=== PATIENT | female | born 1980 | race Caucasian/White ===

== ENCOUNTER 2016-12-29 18:26 | Emergency (ER) | payer OTHER ==
--- NOTE | 2016-12-29 22:41 | ED CLINICAL REPORT ---
Clinical Report - Physicians/Mid Levels [facility] [address] [place] [address] 12/29/2016 18:27 [id number] Time Seen: 18:53 Dec 29 2016. Arrived- By private vehicle. Historian- patient. HISTORY OF PRESENT ILLNESS Chief Complaint: PELVIC PAIN. 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 The symptoms are described as mild. The patient has had pain with urination. The patient has had urinary frequency. No urgency of urination or hematuria. Last normal menstrual period was 5 weeks ago. Not sexually active. Does not use control measures. (patient reports being seen 6 days previously, start on Macrobid for cystitis, symptoms have not resolved, continues to have pain on the left side. With no fevers. Patient reports pelvic pain.). REVIEW OF SYSTEMS No nausea, diarrhea, headache, fever or skin rash. No enlarged lymph nodes. All systems otherwise negative, except as recorded above. PAST HISTORY ( currently breast feeding). SOCIAL HISTORY No drug use. ADDITIONAL NOTES The nursing notes have been reviewed. PHYSICAL EXAM Vital Signs: 12/29/2016 18:50 BP: 142/79. HR: 107. RR: 20. O2 saturation: 100%. Temp: 98.3 F. HEENT: Normal external inspection. ENT: Pharynx normal. Neck: Neck supple. CVS: Heart sounds normal. Respiratory: No respiratory distress. Breath sounds normal. Abdomen: Soft and nontender. Tenderness in the suprapubic area and lower abdomen. Bowel sounds normal. The bowel sounds are not abnormal. : Speculum and bimanual exam performed. External inspection normal. Speculum exam normal. No vaginal discharge. No herpes-like lesions. Bimanual exam normal. Mild right adnexal tenderness. No cervical motion tenderness. (Chaperoned exam of Yuli (Tech)). Skin: Skin warm. Normal skin color. LABS, X-RAYS, AND EKG Laboratory Tests: UA-Culture if indicated: (CARROLL: 12/29/2016 19:00) ( MsgRcvd 12/29/2016 19:19) Final results Test Result Flag Units (Reference) URINE COLOR YELLOW URINE APPEARANCE CLEAR URINE GLUCOSE NEGATIVE (NEGATIVE) URINE BILIRUBIN NEGATIVE (NEGATIVE) URINE KETONE NEGATIVE (NEGATIVE) URINE SPECIFIC GRAVITY 1.015 (1.010-1.030) URINE PH 5.5 (5.0-8.0) URINE PROTEIN NEGATIVE (NEGATIVE) URINE UROBILINOGEN 0.2 EU/dL (0.2-1.0) URINE NITRITE NEGATIVE (NEGATIVE) URINE BLOOD NEGATIVE (NEGATIVE) URINE LEUK ESTERASE NEGATIVE (NEGATIVE) URINE RBC 0-1 rbc/hpf (0-1) URINE WBC RARE wbc/hpf (0-1) URINE EPITHELIAL CELLS RARE EPI/hpf (0-5) URINE BACTERIA NONE SEEN (NONE SEEN) URINE COMMENT CULT NOT INDICATED URINE CULTURES ARE SET-UP BASED ON THE FOLLOWING CRITERIA:POSITIVE NITRITEPOSITIVE LEUKOCYTE ESTERASEGREATER THAN 10 WHITE BLOOD CELLSMODERATE (2+) OR GREATER BACTERIA Urine: (CARROLL: 12/29/2016 19:00) ( [facility] 12/29/2016 19:12) Final results Test Result Flag Units (Reference) URINE NEGATIVE CBC w Diff: (CARROLL: 12/29/2016 19:38) ( [facility] 19:47) Final results Test Result Flag Units (Reference) WHITE BLOOD COUNT 8.8 K/uL (4.5-11.5) RED BLOOD COUNT 4.60 M/uL (4.00-5.20) HEMOGLOBIN 14.0 gm/dL (12.0-16.0) HEMATOCRIT 40.9 % (36.0-46.0) MEAN CELL VOLUME 89 fL (80-100) MEAN CORPUSCULAR HGB 30 pg (26-34) MEAN CORPUSCULAR HGB CONC 34 g/dL (31-37) RED CELL DISTRIBUTION WIDTH 12.9 % (11.6-14.8) PLATELET COUNT 227 K/uL (150-400) NEUTROPHIL % 79.6 H % (50-75) LYMPH % 13.3 L % (25-40) MONO % 3.9 % (3-14) EOSINOPHIL % 2.6 % (0-4) BASOPHIL % 0.6 % (0-2) CMP: (CARROLL: 12/29/2016 19:38) ( MegRcvd 12/29/2016 20:10) Final results Test Result Flag Units (Reference) GLUCOSE 126 H mg/dL (70-110) BUN 11 mg/dL (7-18) CREATININE 0.7 mg/dL (0.6-1.3) Estimated GFR >60 mL/min Estimated GFR- >60 mL/min Note: Persistent reduction over 3 months in eGFR<60 mL/min/1.73 m2 defines CKD. Patients with eGFR values>=60 mL/min/1.73 m2 may also have CKD if evidence ofpersistent proteinuria. Additional information may be foundat www.kidney.org. SODIUM 137 mmol/L (136-145) POTASSIUM 4.1 mmol/L (3.5-5.1) CHLORIDE 102 mmol/L (98-107) CARBON DIOXIDE 25 mmol/L (21-32) CALCIUM 8.5 mg/dL (8.5-10.1) TOTAL PROTEIN 7.0 g/dL (6.4-8.2) ALBUMIN 3.8 g/dL (3.3-5.0) BILIRUBIN, TOTAL 0.3 mg/dL (0.0-1.0) ALKALINE PHOSPHATASE 77 U/L (46-116) AST (SGOT) 19 U/L (15-37) ALT (SGPT) 32 U/L (12-78) Wet Prep: (CARROLL: 12/29/2016 19:50) ( [facility] 12/29/2016 20:05) Final results SPECIMEN DESCRIPTION: C Test Result Flag Units (Reference) WET MOUNT CLUE CELLS:: NONE EPITHELIAL CELLS: MODERATE -- SOURCE?: CERVIX WHITE BLOOD CELLS: FEW TRICHOMONAS:: NONE -- YEAST:: NONE . Note - Tests: (IMPRESSION: 1. 5.8 cm simple right ovarian cyst Electronically Final signed by:Cyril Dow MD 12/30/2016 12:06:16 AM). PROGRESS AND PROCEDURES Course of Care: patient here in the area stable, with a large ovarian cyst, with otherwise no signs of torsion No signs of hemorrhagic cyst. Patient to follow up outpatient for this. No McBurney's point tenderness. No other systemic symptoms. Negative . No signs of tubo-ovarian mass. No signs of ectopic. Patient is stable. Symptoms better. Patient/family counseled. Differential Diagnosis: I considered gastritis, gastroenteritis, acute appendicitis, mesenteric lymphadenitis, diverticulitis, biliary colic, hepatitis, splenic injury, intraabdominal abscess, urinary tract infection, cystitis, ovarian cyst, abdominal aortic aneurysm and myocardial infarction as a possible cause of abdominal pain in this patient. This is a partial list of diagnoses considered. Disposition: Discharged. CLINICAL IMPRESSION Single simple right ovarian cyst (Large almost 6 cm). No ruptured ovarian cyst, torsion of ovary or polycystic ovarian disease. INSTRUCTIONS Drink plenty of fluids. Warnings: Further evaluation is necessary. Prescription Medications: Ultram 50 mg: take 1 orally every 6 hours for 3 days, as needed for pain. Dispense fifteen (15). No refills. Substitution is permissible. Follow-up with: Nathaniel Hawley MD, Obstetrics/Gynecology, , [facility], [address] [place] [address], [facility] Follow up. Call for the next available appointment. (Electronically signed by Cat Salas P.A.-C 12/30/2016 0:11)
--- NOTE | 2016-12-29 22:41 | ED NURSING NOTES ---
Clinical Report - Nurses [facility] [address] [place] [address] 12/29/2016 18:27 Patient: KATHE BOCANEGRA TRIAGE Triage time 18:50. Acuity: LEVEL 3. Chief Complaint: PELVIC PAIN and FREQUENCY. Alert. No acute distress. --18:54 Anthony Lechuga R.N. 18:50 12/29/16. BP: 142/79. HR: 107. RR: 20. O2 saturation: 100%. Temp: 98.3 F. Pain level now 5/10. --18:54 Anthony Lechuga R.N. Weight: 72.5 kg estimated. Height/Length: 65 inches Estimated. BMI: 26.6. --23:32 Dominguez Acosta R.N. Medications Macrodantin Oral. --18:53 Anthony Lechuga R.N. PriLOSEC Oral. --19:08 Anthony Lechuga R.N. Allergies Codeine. Morphine and Related. Vicodin. --18:52 Anthony Lechuga R.N. History Arrived by private vehicle. Historian: patient. Accompanied by family. Onset. (1 weeks ago). 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 --18:54 Anthony Lechuga R.N. PROBLEMS: Gastroenteritis. Cough. Anemia. URI. Bronchitis. Spontaneous (Miscarriage). Irritable Bowel Syndrome. Vaginal Bleeding. Problems. Threatened . Vaginitis. UTI - Urinary Tract Infection. Immunizations. OB History. . Depression. Anxiety Reaction. --19:08 Anthony Lechuga R.N. Interventions ID band on patient. --18:54 Anthony Lechuga R.N. PHYSICAL ASSESSMENT GENERAL / NEURO / PSYCH: Alert. Oriented X 4. Appears in no acute distress. RESPIRATORY: Respirations not labored. GI / : Abdomen soft. SKIN: Skin is warm and dry. --18:54 Anthony Lechuga R.N. NURSING PROGRESS NOTES Call light placed in reach. Bed placed in lowest position. --18:55 Anthony Lechuga R.N. Care transferred and report received (LOU Cruz). --19:11 Dominguez Acosta R.N. 19:36. Checked patient name and birthdate: patient confirmed. Blood samples drawn from the right antecubital space by tech per protocol ; labeled in presence of the patient and sent to lab: rainbow set. --19:59 McQuoid, Yuli, ER Tech1 19:50. PELVIC EXAM: Pelvic exam performed by PA. Assisted by one tech. Preparation: pelvic tray. Procedure. Specimens collected and sent to lab: GC, chlamydia and wet prep. --20:00 McQuoid, Yuli, ER Tech1 Reassurance given. The patient reports no complaints and she is calm and resting quietly. Overall patient status is the same- she states feels the same. Call light placed in reach. Side rails up x 2. Bed placed in lowest position. Brakes of bed on. --21:02 Dominguez Acosta R.N. 21:01 12/29/16. BP: 134/80. HR: 96. RR: 16. O2 saturation: 100%. Temp: 98.2 F (oral). Pain level now: 02/25. --21:02 Dominguez Acosta R.N. <<STRICKEN ENTRY-- 22:30 X-ray complete. --22:35 McQuoid, Yuli, ER Tech1 --END STRIKE>> Charted On Wrong Patient --22:38 McQuoid, Yuli, ER Tech1 22:30 Ultrasound in progress. --22:39 McQuoid, Yuli, ER Tech1 22:40 Ultrasound complete. --22:41 McQuoid, Yuli, ER Tech1 22:51 12/29/2016 Tramadol (TraMADol HCl) PO Tablets 50 mg given. Allergies verified, confirmed 5 rights and sedative warning given to the patient. --22:51 Edenilson Ascencio R.N. DISPOSITION / DISCHARGE 23:00 12/29/16. Condition at departure: stable. No learning barriers present. Discharge instructions provided and reviewed with the patient and spouse. Reviewed medication(s) side effects, precautions, dosing and course information. Prescription(s) given to the patient. Reviewed need for increased fluid intake. Patient and spouse verbalized understanding. Written instructions provided in [place]. ( Patient given referral for Dr. Hawley. Patient states she will not see him but go to her PCP instead.). The patient was discharged by the physician. She was discharged home and accompanied by spouse. She left the Emergency Department ambulatory and via private vehicle. Spouse driving. --23:31 Lory Carmen 23:00 12/29/16. BP: 127/98. HR: 110. RR: 20. O2 saturation: 98% on room air. Temp: 98 F (oral). Pain level now: 04/27. --23:31 Lory Carmen. Locked/Released at 12/30/2016 9:02 by Anthony Lechuga R.N.
--- NOTE | 2016-12-29 22:41 | ED ORDER SUMMARY ---
..... Patient: KATHE BOCANEGRA OrderSheet [facility] VisitID: [id number] [address] [place] [address] 36y, F Registration Date/Time: 12/29/2016 ORDER SHEET Weight: 72.5 kg (estimated) Allergies: Codeine, Morphine and Related, Vicodin GENERAL ORDERS: UA-Culture if indicated Urgent (19:00 12/29/2016 EKoroleva P.A.-C) (Ack 19:07 RKaruga) (19:31 ALawrence ER Tech1) Urine Urgent (19:00 12/29/2016 EKoroleva P.A.-C) (Ack 19:07 RKaruga) (19:31 ALawrence ER Tech1) Wet Prep (Cervix) (c) Urgent (19:31 12/29/2016 EKoroleva P.A.-C) (Ack 19:32 ALawrence ER Tech1) (20:00 AMcQuoid ER Tech1) GC/Chlamydia (Cervix) (c) Urgent (19:31 12/29/2016 EKoroleva P.A.-C) (Ack 19:32 ALawrence ER Tech1) (20:00 AMcQuoid ER Tech1) CBC w Diff Urgent (19:31 12/29/2016 EKoroleva P.A.-C) (Ack 19:32 ALawrence ER Tech1) (20:00 AMcQuoid ER Tech1) CMP Urgent (19:31 12/29/2016 EKoroleva P.A.-C) (Ack 19:32 ALawrence ER Tech1) (20:00 AMcQuoid ER Tech1) Pelvic Exam Setup (19:40 12/29/2016 EKoroleva P.A.-C) (20:00 AMcQuoid ER Tech1) US Pelvic Complete w Transvag Urgent (20:08 12/29/2016 EKoroleva P.A.-C) (Ack 20:19 ALawrence ER Tech1) (22:40 AMcQuoid ER Tech1) MEDICATION ORDERS: Tramadol PO 50 mg (NOW) (22:40 12/29/2016 EKoroleva P.A.-C) (22:51 JDeElena R.N.) IV FLUIDS: ORDER SHEET NOTES: [Electronically signed by Cat Salas P.A.-C (00:11 12/30/2016)] [Electronically signed by Anthony Lechuga R.N. (09:02 12/30/2016)] [Electronically locked/signed by Anthony Lechuga R.N. (09:02 12/30/2016)]
--- NOTE | 2016-12-29 22:41 | ED ORDER SUMMARY ---
..... Patient: KATHE BOCANEGRA OrderSheet [facility] VisitID: [id number] [address] [place] [address] 36y, F Registration Date/Time: 12/29/2016 ORDER SHEET Weight: 72.5 kg (estimated) Allergies: Codeine, Morphine and Related, Vicodin GENERAL ORDERS: UA-Culture if indicated Urgent (19:00 12/29/2016 EKoroleva P.A.-C) (Ack 19:07 RKaruga) (19:31 ALawrence ER Tech1) Urine Urgent (19:00 12/29/2016 EKoroleva P.A.-C) (Ack 19:07 RKaruga) (19:31 ALawrence ER Tech1) Wet Prep (Cervix) (c) Urgent (19:31 12/29/2016 EKoroleva P.A.-C) (Ack 19:32 ALawrence ER Tech1) (20:00 AMcQuoid ER Tech1) GC/Chlamydia (Cervix) (c) Urgent (19:31 12/29/2016 EKoroleva P.A.-C) (Ack 19:32 ALawrence ER Tech1) (20:00 AMcQuoid ER Tech1) CBC w Diff Urgent (19:31 12/29/2016 EKoroleva P.A.-C) (Ack 19:32 ALawrence ER Tech1) (20:00 AMcQuoid ER Tech1) CMP Urgent (19:31 12/29/2016 EKoroleva P.A.-C) (Ack 19:32 ALawrence ER Tech1) (20:00 AMcQuoid ER Tech1) Pelvic Exam Setup (19:40 12/29/2016 EKoroleva P.A.-C) (20:00 AMcQuoid ER Tech1) US Pelvic Complete w Transvag Urgent (20:08 12/29/2016 EKoroleva P.A.-C) (Ack 20:19 ALawrence ER Tech1) (22:40 AMcQuoid ER Tech1) MEDICATION ORDERS: Tramadol PO 50 mg (NOW) (22:40 12/29/2016 EKoroleva P.A.-C) (22:51 JDeElena R.N.) IV FLUIDS: ORDER SHEET NOTES: [Electronically signed by Cat Salas P.A.-C (00:11 12/30/2016)] [Electronically signed by Anthony Lechuga R.N. (09:02 12/30/2016)] [Electronically locked/signed by Anthony Lechuga R.N. (09:02 12/30/2016)]
--- NOTE | 2016-12-29 22:41 | ED CLINICAL REPORT ---
Clinical Report - Physicians/Mid Levels [facility] [address] [place] [address] 12/29/2016 18:27 [id number] Time Seen: 18:53 Dec 29 2016. Arrived- By private vehicle. Historian- patient. 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 The symptoms are described as mild. The patient has had pain with urination. The patient has had urinary frequency. No urgency of urination or hematuria. Last normal menstrual period was 5 weeks ago. Not sexually active. Does not use control measures. (patient reports being seen 6 days previously, start on Macrobid for cystitis, symptoms have not resolved, continues to have pain on the left side. With no fevers. Patient reports pelvic pain.). REVIEW OF SYSTEMS No nausea, diarrhea, headache, fever or skin rash. No enlarged lymph nodes. All systems otherwise negative, except as recorded above. PAST HISTORY ( currently breast feeding). SOCIAL HISTORY No drug use. ADDITIONAL NOTES The nursing notes have been reviewed. PHYSICAL EXAM Vital Signs: 12/29/2016 18:50 BP: 142/79. HR: 107. RR: 20. O2 saturation: 100%. Temp: 98.3 F. HEENT: Normal external inspection. ENT: Pharynx normal. Neck: Neck supple. CVS: Heart sounds normal. Respiratory: No respiratory distress. Breath sounds normal. Abdomen: Soft and nontender. Tenderness in the suprapubic area and lower abdomen. Bowel sounds normal. The bowel sounds are not abnormal. : Speculum and bimanual exam performed. External inspection normal. Speculum exam normal. No vaginal discharge. No herpes-like lesions. Bimanual exam normal. Mild right adnexal tenderness. No cervical motion tenderness. (Chaperoned exam of Yuli (Tech)). Skin: Skin warm. Normal skin color. LABS, X-RAYS, AND EKG Laboratory Tests: UA-Culture if indicated: (CARROLL: 12/29/2016 19:00) ( MsgRcvd 12/29/2016 19:19) Final results Test Result Flag Units (Reference) URINE COLOR YELLOW URINE APPEARANCE CLEAR URINE GLUCOSE NEGATIVE (NEGATIVE) URINE BILIRUBIN NEGATIVE (NEGATIVE) URINE KETONE NEGATIVE (NEGATIVE) URINE SPECIFIC GRAVITY 1.015 (1.010-1.030) URINE PH 5.5 (5.0-8.0) URINE PROTEIN NEGATIVE (NEGATIVE) URINE UROBILINOGEN 0.2 EU/dL (0.2-1.0) URINE NITRITE NEGATIVE (NEGATIVE) URINE BLOOD NEGATIVE (NEGATIVE) URINE LEUK ESTERASE NEGATIVE (NEGATIVE) URINE RBC 0-1 rbc/hpf (0-1) URINE WBC RARE wbc/hpf (0-1) URINE EPITHELIAL CELLS RARE EPI/hpf (0-5) URINE BACTERIA NONE SEEN (NONE SEEN) URINE COMMENT CULT NOT INDICATED URINE CULTURES ARE SET-UP BASED ON THE FOLLOWING CRITERIA:POSITIVE NITRITEPOSITIVE LEUKOCYTE ESTERASEGREATER THAN 10 WHITE BLOOD CELLSMODERATE (2+) OR GREATER BACTERIA Urine: (CARROLL: 12/29/2016 19:00) ( [facility] 12/29/2016 19:12) Final results Test Result Flag Units (Reference) URINE NEGATIVE CBC w Diff: (CARROLL: 12/29/2016 19:38) ( [facility] 12/[place]/2016 19:47) Final results Test Result Flag Units (Reference) WHITE BLOOD COUNT 8.8 K/uL (4.5-11.5) RED BLOOD COUNT 4.60 M/uL (4.00-5.20) HEMOGLOBIN 14.0 gm/dL (12.0-16.0) HEMATOCRIT 40.9 % (36.0-46.0) MEAN CELL VOLUME 89 fL (80-100) MEAN CORPUSCULAR HGB 30 pg (26-34) MEAN CORPUSCULAR HGB CONC 34 g/dL (31-37) RED CELL DISTRIBUTION WIDTH 12.9 % (11.6-14.8) PLATELET COUNT 227 K/uL (150-400) NEUTROPHIL % 79.6 H % (50-75) LYMPH % 13.3 L % (25-40) MONO % 3.9 % (3-14) EOSINOPHIL % 2.6 % (0-4) BASOPHIL % 0.6 % (0-2) CMP: (CARROLL: 12/29/2016 19:38) ( VagRcvd 12/29/2016 20:10) Final results Test Result Flag Units (Reference) GLUCOSE 126 H mg/dL (70-110) BUN 11 mg/dL (7-18) CREATININE 0.7 mg/dL (0.6-1.3) Estimated GFR >60 mL/min Estimated GFR- >60 mL/min Note: Persistent reduction over 3 months in eGFR<60 mL/min/1.73 m2 defines CKD. Patients with eGFR values>=60 mL/min/1.73 m2 may also have CKD if evidence ofpersistent proteinuria. Additional information may be foundat www.kidney.org. SODIUM 137 mmol/L (136-145) POTASSIUM 4.1 mmol/L (3.5-5.1) CHLORIDE 102 mmol/L (98-107) CARBON DIOXIDE 25 mmol/L (21-32) CALCIUM 8.5 mg/dL (8.5-10.1) TOTAL PROTEIN 7.0 g/dL (6.4-8.2) ALBUMIN 3.8 g/dL (3.3-5.0) BILIRUBIN, TOTAL 0.3 mg/dL (0.0-1.0) ALKALINE PHOSPHATASE 77 U/L (46-116) AST (SGOT) 19 U/L (15-37) ALT (SGPT) 32 U/L (12-78) Wet Prep: (CARROLL: 12/29/2016 19:50) ( [facility] [place] 20:05) Final results SPECIMEN DESCRIPTION: C Test Result Flag Units (Reference) WET MOUNT CLUE CELLS:: NONE EPITHELIAL CELLS: MODERATE -- SOURCE?: CERVIX WHITE BLOOD CELLS: FEW TRICHOMONAS:: NONE -- YEAST:: NONE . Note - Tests: (IMPRESSION: 1. 5.8 cm simple right ovarian cyst Electronically Final signed by:Cyril Dow MD 12/30/2016 12:06:16 AM). PROGRESS AND PROCEDURES Course of Care: patient here in the area stable, with a large ovarian cyst, with otherwise no signs of torsion No signs of hemorrhagic cyst. Patient to follow up outpatient for this. No McBurney's point tenderness. No other systemic symptoms. Negative . No signs of tubo-ovarian mass. No signs of ectopic. Patient is stable. Symptoms better. Patient/family counseled. Differential Diagnosis: I considered gastritis, gastroenteritis, acute appendicitis, mesenteric lymphadenitis, diverticulitis, biliary colic, hepatitis, splenic injury, intraabdominal abscess, urinary tract infection, cystitis, ovarian cyst, abdominal aortic aneurysm and myocardial infarction as a possible cause of abdominal pain in this patient. This is a partial list of diagnoses considered. Disposition: Discharged. CLINICAL IMPRESSION Single simple right ovarian cyst (Large almost 6 cm). No ruptured ovarian cyst, torsion of ovary or polycystic ovarian disease. INSTRUCTIONS Drink plenty of fluids. Warnings: Further evaluation is necessary. Prescription Medications: Ultram 50 mg: take 1 orally every 6 hours for 3 days, as needed for pain. Dispense fifteen (15). No refills. Substitution is permissible. Follow-up with: Nathaniel Hawley MD, Obstetrics/Gynecology, , [facility], [address] [place] [address], [facility] Follow up. Call for the next available appointment. (Electronically signed by Cat Salas P.A.-C 12/30/2016 0:11)
--- NOTE | 2016-12-29 22:41 | ED NURSING NOTES ---
Clinical Report - Nurses [facility] [address] [place] [address] 12/29/2016 18:27 Patient: KATHE BOCANEGRA TRIAGE Triage time 18:50. Acuity: LEVEL 3. Chief Complaint: PELVIC PAIN and FREQUENCY. Alert. No acute distress. --18:54 Anthony Lechuga R.N. 18:50 12/29/16. BP: 142/79. HR: 107. RR: 20. O2 saturation: 100%. Temp: 98.3 F. Pain level now 5/10. --18:54 Anthony Lechuga R.N. Weight: 72.5 kg estimated. Height/Length: 65 inches Estimated. BMI: 26.6. --23:32 Dominguez Acosta R.N. Medications Macrodantin Oral. --18:53 Anthony Lechuga R.N. PriLOSEC Oral. --19:08 Anthony Lechuga R.N. Allergies Codeine. Morphine and Related. Vicodin. --18:52 Anthony Lechuga R.N. History Arrived by private vehicle. Historian: patient. Accompanied by family. Onset. (1 weeks ago). 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 --18:54 Anthony Lechuga R.N. PROBLEMS: Gastroenteritis. Cough. Anemia. URI. Bronchitis. Spontaneous (Miscarriage). Irritable Bowel Syndrome. Vaginal Bleeding. Problems. Threatened . Vaginitis. UTI - Urinary Tract Infection. Immunizations. OB History. . Depression. Anxiety Reaction. --19:08 Anthony Lechuga R.N. Interventions ID band on patient. --18:54 Anthony Lechuga R.N. PHYSICAL ASSESSMENT GENERAL / NEURO / PSYCH: Alert. Oriented X 4. Appears in no acute distress. RESPIRATORY: Respirations not labored. GI / : Abdomen soft. SKIN: Skin is warm and dry. --18:54 Anthony Lechuga R.N. NURSING PROGRESS NOTES Call light placed in reach. Bed placed in lowest position. --18:55 Anthony Lechuga R.N. Care transferred and report received (LOU Cruz). --19:11 Dominguez Acosta R.N. 19:36. Checked patient name and birthdate: patient confirmed. Blood samples drawn from the right antecubital space by tech per protocol ; labeled in presence of the patient and sent to lab: rainbow set. --19:59 McQuoid, Yuli, ER Tech1 19:50. PELVIC EXAM: Pelvic exam performed by PA. Assisted by one tech. Preparation: pelvic tray. Procedure. Specimens collected and sent to lab: GC, chlamydia and wet prep. --20:00 McQuoid, Yuli, ER Tech1 Reassurance given. The patient reports no complaints and she is calm and resting quietly. Overall patient status is the same- she states feels the same. Call light placed in reach. Side rails up x 2. Bed placed in lowest position. Brakes of bed on. --21:02 Dominguez Acosta R.N. 21:01 12/29/16. BP: 134/80. HR: 96. RR: 16. O2 saturation: 100%. Temp: 98.2 F (oral). Pain level now: 02/25. --21:02 Dominguez Acosta R.N. <<STRICKEN ENTRY-- 22:30 X-ray complete. --22:35 McQuoid, Yuli, ER Tech1 --END STRIKE>> Charted On Wrong Patient --22:38 McQuoid, Yuli, ER Tech1 22:30 Ultrasound in progress. --22:39 McQuoid, Yuli, ER Tech1 22:40 Ultrasound complete. --22:41 McQuoid, Yuli, ER Tech1 22:51 12/29/2016 Tramadol (TraMADol HCl) PO Tablets 50 mg given. Allergies verified, confirmed 5 rights and sedative warning given to the patient. --22:51 Edenilson Ascencio R.N. DISPOSITION / DISCHARGE 23:00 12/29/16. Condition at departure: stable. No learning barriers present. Discharge instructions provided and reviewed with the patient and spouse. Reviewed medication(s) side effects, precautions, dosing and course information. Prescription(s) given to the patient. Reviewed need for increased fluid intake. Patient and spouse verbalized understanding. Written instructions provided in [place]. ( Patient given referral for Dr. Hawley. Patient states she will not see him but go to her PCP instead.). The patient was discharged by the physician. She was discharged home and accompanied by spouse. She left the Emergency Department ambulatory and via private vehicle. Spouse driving. --23:31 Lory Carmen 23:00 12/29/16. BP: 127/98. HR: 110. RR: 20. O2 saturation: 98% on room air. Temp: 98 F (oral). Pain level now: 04/27. --23:31 Lory Carmen. Locked/Released at 12/30/2016 9:02 by Anthony Lechuga R.N.
--- NOTE | 2016-12-30 00:06 | DIAGNOSTIC IMAGING REPORT ---
PROCEDURE: US COMPLETE PELVIC W/TRANSVAG INDICATION: Pelvic pain x 2 weeks, initial encounter TECHNIQUE: Transabdominal and endovaginal morelos scale and color Doppler sonographic images of the female pelvis were obtained. COMPARISON: Pelvic ultrasound 09/24/2013 FINDINGS: TRANSABDOMINAL SCANS: Anteverted uterus measures 6.1 x 6 x 3.9 cm. Right adnexal cyst. TRANSVAGINAL SCANS: Myometrium is unremarkable. Endometrium measures 9 mm. Left ovary measures 2.5 x 2 x 1.3 cm. Right ovary measures 5.8 x 4.5 x 4 cm with a 5.8 cm simple cyst. There is vascular flow to both ovaries. There is no free fluid the cul-de-sac. IMPRESSION: 1. 5.8 cm simple right ovarian cyst
--- NOTE | 2016-12-30 09:03 | ED DISCHARGE INSTRUCTIONS ---
Patient: KATHE BOCANEGRA General Instructions [facility]ly [facility] VisitID: [id number] [address] [place] [address] 36y, F Registration Date/Time: 12/29/2016 Single simple right ovarian cyst (Large almost 6 cm). No ruptured ovarian cyst, torsion of ovary or polycystic ovarian disease. INSTRUCTIONS Drink plenty of fluids. Warnings: Further evaluation is necessary. Prescription Medications: Ultram 50 mg: take 1 orally every 6 hours for 3 days, as needed for pain. Dispense fifteen (15). No refills. Substitution is permissible. Follow-up with: Nathaniel Hawley MD, Obstetrics/Gynecology, , [facility], [address] [place] [address] Follow up. Call for the next available appointment. ADDITIONAL INFORMATION Ovarian Cyst The ovary is a small organ located on each side of the uterus. During each menstrual cycle a tiny egg sac forms in the ovary. If the egg is released but does not occur, this sac usually dissolves. Sometimes, the sac may fill with fluid. It then enlarges into a painful cyst. Usually the cyst will rupture or shrink on its own. In either case, the pain gradually goes away over the next 1-3 days. If the cyst does not shrink or rupture, it may cause continued pain. Home Care: Rest in bed and avoid heavy exertion until you are feeling better. Heat to the lower abdomen usually helps (heating pad or hot packs -- a small towel soaked in hot water). You may use acetaminophen (Tylenol) or ibuprofen (Motrin, Advil) to control pain, unless another pain medicine was prescribed. [NOTE: If you have chronic liver or kidney disease or ever had a stomach ulcer or GI bleeding, talk with your doctor before using these medicines.] Follow Up: See your doctor within the next 2-3 days if your pain doesnt improve. Otherwise, follow up with your doctor after your next period or as directed by our staff. Get Prompt Medical Attention if any of the following occur: Pain worsens or fails to respond to the above measures Fever of 100.4F (38C) or higher, or as directed by your healthcare provider Heavy vaginal bleeding (soaking one pad an hour for three hours) You feel weak or dizzy Fainting Passage of a pink or morelos tissue with menstrual bleeding You have been given the following additional information: Ovarian Cyst (Electronically signed by Cat Salas P.A.-C 12/30/2016 0:11)
--- NOTE | 2016-12-30 09:03 | ED MED RECONCILIATION SUMMARY ---
Patient: KATHE BOCANEGRA Medication Reconciliation Report [facility] VisitID: [id number] [address] [place] [address] 36y, F Registration Date/Time: 12/29/2016 Weight: 72.5 kg Height/Length: 65 in. BMI: 26.6 ALLERGIES: Codeine, Morphine and Related, Vicodin The patient's Home Medications are listed below: THE FOLLOWING MEDICATIONS NEED TO BE RECONCILED: Macrodantin Oral PriLOSEC Oral The source(s) of the original Home Medication information: Not obtained. The following Medications were given to the patient in the Emergency Department: Tramadol [PO] PO 50 mg, administered: 12/29/2016 10:51:00 PM The following Medications were prescribed to the patient: Ultram 50 mg: take 1 orally every 6 hours for 3 days, as needed for pain. Dispense fifteen (15). No refills. Substitution is permissible. -- Cat Salas P.A.-C
--- NOTE | 2016-12-30 09:03 | ED MED RECONCILIATION SUMMARY ---
Patient: KATHE BOCANEGRA Medication Reconciliation Report [facility] VisitID: [id number] [address] [place] [address] 36y, F Registration Date/Time: 12/29/2016 Weight: 72.5 kg Height/Length: 65 in. BMI: 26.6 ALLERGIES: Codeine, Morphine and Related, Vicodin The patient's Home Medications are listed below: THE FOLLOWING MEDICATIONS NEED TO BE RECONCILED: Macrodantin Oral PriLOSEC Oral The source(s) of the original Home Medication information: Not obtained. The following Medications were given to the patient in the Emergency Department: Tramadol [PO] PO 50 mg, administered: 12/29/2016 10:51:00 PM The following Medications were prescribed to the patient: Ultram 50 mg: take 1 orally every 6 hours for 3 days, as needed for pain. Dispense fifteen (15). No refills. Substitution is permissible. -- Cat Salas P.A.-C
--- NOTE | 2016-12-30 09:03 | ED MAR SUMMARY ---
..... Medication Administration Record [facility] [address] [place] [address] Patient: KATHE BOCANEGRA Visit ID: [id number] 36y, F Weight: 72.5 kg Height/Length: 65 in BMI: 26.6 ALLERGIES: Codeine, Morphine and Related, Vicodin Given 22:51 12/29/2016 Edenilson Ascencio, RJoeNJoe Medication Administered: TRAMADOL [PO] (TRAMADOL HCL), Dose: 50 mg Tablets PO. Medication Ordered: Tramadol PO 50 mg (NOW).
--- NOTE | 2016-12-30 09:03 | ED MAR SUMMARY ---
..... Medication Administration Record [facility] [address] [place] [address] Patient: KATHE BOCANEGRA Visit ID: [id number] 36y, F Weight: 72.5 kg Height/Length: 65 in BMI: 26.6 ALLERGIES: Codeine, Morphine and Related, Vicodin Given 22:51 12/29/2016 Edenilson Ascencio, RJoeNJoe Medication Administered: TRAMADOL [PO] (TRAMADOL HCL), Dose: 50 mg Tablets PO. Medication Ordered: Tramadol PO 50 mg (NOW).
--- NOTE | 2016-12-30 09:03 | ED DISCHARGE INSTRUCTIONS ---
Patient: KATHE BOCANEGRA General Instructions [facility] VisitID: [id number] [address] [place] [address] 36y, F Registration Date/Time: 12/29/2016 Single simple right ovarian cyst (Large almost 6 cm). No ruptured ovarian cyst, torsion of ovary or polycystic ovarian disease. INSTRUCTIONS Drink plenty of fluids. Warnings: Further evaluation is necessary. Prescription Medications: Ultram 50 mg: take 1 orally every 6 hours for 3 days, as needed for pain. Dispense fifteen (15). No refills. Substitution is permissible. Follow-up with: Nathaniel Hawley MD, Obstetrics/Gynecology, , [facility], [address] [place] [address] Follow up. Call for the next available appointment. ADDITIONAL INFORMATION Ovarian Cyst The ovary is a small organ located on each side of the uterus. During each menstrual cycle a tiny egg sac forms in the ovary. If the egg is released but does not occur, this sac usually dissolves. Sometimes, the sac may fill with fluid. It then enlarges into a painful cyst. Usually the cyst will rupture or shrink on its own. In either case, the pain gradually goes away over the next 1-3 days. If the cyst does not shrink or rupture, it may cause continued pain. Home Care: Rest in bed and avoid heavy exertion until you are feeling better. Heat to the lower abdomen usually helps (heating pad or hot packs -- a small towel soaked in hot water). You may use acetaminophen (Tylenol) or ibuprofen (Motrin, Advil) to control pain, unless another pain medicine was prescribed. [NOTE: If you have chronic liver or kidney disease or ever had a stomach ulcer or GI bleeding, talk with your doctor before using these medicines.] Follow Up: See your doctor within the next 2-3 days if your pain doesnt improve. Otherwise, follow up with your doctor after your next period or as directed by our staff. Get Prompt Medical Attention if any of the following occur: Pain worsens or fails to respond to the above measures Fever of 100.4F (38C) or higher, or as directed by your healthcare provider Heavy vaginal bleeding (soaking one pad an hour for three hours) You feel weak or dizzy Fainting Passage of a pink or morelos tissue with menstrual bleeding You have been given the following additional information: Ovarian Cyst (Electronically signed by Cat Salas P.A.-C 12/30/2016 0:11)
== END 2016-12-29 23:00 | disposition home or self-care (01) ==
LOC: ED SRH 18:26
DX: N83.201 Unspecified ovarian cyst, right side (principal); Z88.5 Allergy status to narcotic agent
CPT/HCPCS: 90004; 90100; 90195; 91227; 91228; 93070; 95059

== ENCOUNTER 2017-04-26 12:58 | Outpatient (CLI) | payer OTHER ==
--- NOTE | 2017-04-26 13:31 | DIAGNOSTIC IMAGING REPORT ---
PROCEDURE: US COMPLETE PELVIC W/TRANSVAG INDICATION: PELVIC PAIN TECHNIQUE: Transabdominal and endovaginal morelos scale and color Doppler sonographic images of the female pelvis were obtained. COMPARISON: Pelvic ultrasound 12/29/2016. FINDINGS: TRANSABDOMINAL SCANS: Anteverted uterus. Left adnexal cyst. Normal kidneys. TRANSVAGINAL SCANS: Myometrium is unremarkable. Endometrium measures 15.7 mm. Left ovary measures 3.7 x 2.9 x 3.3 cm with a 2.3 cm simple cyst. Right ovary measures 2.6 x 1.7 x 2.1 cm with resolution of previously noted right ovarian cyst. No free fluid in the cul-de-sac. IMPRESSION: 1. Resolved right ovarian cyst 2. 2.3 cm left ovarian simple cyst.
== END 2017-04-26 23:00 | disposition home or self-care (01) ==
LOC: US SRH 12:58
DX: R10.2 Pelvic and perineal pain (principal); N83.292 Other ovarian cyst, left side